=== PATIENT | male | born 1945 | race Caucasian/White ===

== ENCOUNTER 2017-12-21 14:50 | Emergency (ER) | payer OTHER ==
[2017-12-21 14:55] VITALS: TEMP 97.6; BMI 29.6
--- NOTE | 2017-12-21 14:55 | PDOC ---
Rapid Medical Evaluation Time Seen by Provider: 12/21/17 14:52 Medical Evaluation: 12/21/17 14:52 I have performed a brief in-person evaluation of this patient. The patient presents with a chief complaint of: General malaise, denies corbett, cp, sob, abd pain Pertinent physical exam findings: L/S CTAB, RRR, S1, S2, Abd soft, NT, ND I have ordered the following: cbc, cmp, cardiac profile, ekg The patient will proceed to the ED for further evaluation. Discharge Disposition - Diagnosis Malaise - Discharge Dispostion Disposition: HOME Condition at time of disposition: Stable - Referrals Referrals: Sid Valentine [Non Staff, Medical] - - Patient Instructions Printed Discharge Instructions: DI for Fatigue - Post Discharge Activity
--- NOTE | 2017-12-21 15:44 | PDOC ---
History of Present Illness - General Chief Complaint: Chest Pain Stated Complaint: CHEST PAIN,R/O BI Time Seen by Provider: 12/21/17 14:52 History Source: Patient Exam Limitations: No Limitations - History of Present Illness Initial Comments: 12/21/17 16:14 The patient is a 72 year old male with a significant PMH of CAD stent placement (10 years ago), TIA, PAD sp stent, Vtach s/p AICD, who presents to the emergency department with generalized weakness and fatigue for 1 week. The patient reports that he recently had stent placed in his legs 1 week ago. He reports that he was then placed on xarelto. Pt notes he was seeing the TROMBONE SLIDE ASSEMBLER at his cardiologists office today, had an EKG that was abnormal (electronically erad as AMI, she showed her underwear cutter and who said it was not an NC), had an echo noted for new posterior wall motion abnormality (lsat echo was 1 year ago) , and was referred to the ED for evlauation. The pt denhenna rollinsy cp, sob, londono, n/ v, diaphoresis, abd pain, back pain, headache, dizziness, dysuria, hematuria, bpr, diarrhea, melena. Pt only notes that he feels generally weak since his procedure last week. notes that when he walks around, his leg pain is resolved. Cards: Dr. Valentine social: denies drug use, etoh abuse Past History - Past Medical History Allergies/Adverse Reactions: Allergies Allergy/AdvReac Type Severity Reaction Status Date / Time No Known Allergies Allergy Verified 12/21/17 14:55 Cardiac Disorders: Yes (STENTS) COPD: No HTN: Yes - Surgical History Cardiac Surgery: Yes (PACEMAKER DEFIRILLATOR) - Suicide/Smoking/Psychosocial Hx Smoking History: Never smoked Review of Systems - Review of Systems Able to Perform ROS?: Yes Comments:: 12/21/17 16:14 CONSTITUTIONAL:(+)generalized weakness No reported: Fever, Chills, Diaphoresis, Malaise, Loss of Appetite HEENT: No reported: Rhinorrhea, Nasal Congestion, Throat Pain, Throat Swelling, Difficulty Swallowing, Mouth Swelling, Ear Pain, Eye Pain, Visual Changes CARDIOVASCULAR: No reported: Chest Pain, Syncope, Palpitations, Irregular Heart Rate, Lightheadedness, Peripheral Edema RESPIRATORY: No reported: Cough, Shortness of Breath, SOB with Exertion, Orthopnea, Wheezing , Stridor, Hemoptysis GASTROINTESTINAL: No reported: Abdominal pain, Abdominal Distension, Nausea, Vomiting, Diarrhea, Constipation, Melena, Hematochezia GENITOURINARY: No reported: Dysuria, Frequency, Urgency, Hesitancy, Flank Pain, Genital Pain MUSCULOSKELETAL: No reported: Myalgia, Arthralgia, Joint Swelling, Back pain, Neck Pain SKIN: No reported: Rash, Itching, Pallor HEMEATOLOGIC/IMMUNOLOGIC: No reported: Easy Bleeding, Easy Bruising, Lymphadenopathy, Frequent infections ENDOCRINE: No reported: Unexplained Weight Gain, Unexplained Weight Loss, Heat Intolerance , Cold Intolerance NEUROLOGIC: No reported: Headache, Focal Weakness, Paresthesias, Vertigo, Lightheadedness, Unsteady Gait, Seizure, Mental Status Changes, Incontinence PSYCHIATRIC: No reported: Anxiety, Depression *Physical Exam - Vital Signs Last Vital Signs Temp Pulse Resp BP Pulse Ox 97.6 F 62 18 151/78 97 12/21/17 14:51 12/21/17 14:51 12/21/17 14:51 12/21/17 14:51 12/21/17 14:51 - Physical Exam Comments: 12/21/17 16:14 GENERAL: The patient is awake, alert, and fully oriented, Nontoxic - in no acute distress. HEAD: Normocephalic, atraumatic. EYES: extraocular movements intact, sclera anicteric, conjunctiva clear. ENT: Normal voice, Moist mucous membranes. NECK: Normal range of motion, supple LUNGS: Breath sounds equal, clear to auscultation bilaterally. No wheezes, no rhonchi, no rales. HEART: Regular rate and rhythm, normal S1 and S2 without murmur, rub or gallop. ABDOMEN: Soft, nontender, normoactive bowel sounds. No guarding, no rebound. . No CVA tenderness GROIN: ecchymosis to the base of the penis and r inguinal fold, no pulsatile mass, tenderness, erythema, induraiton. EXTREMITIES: Normal range of motion, trace edema. NEUROLOGICAL: No facial assymetry, Normal speech, moving all 4 extremities spontaneously and symmetrically PSYCH: Normal mood, normal affect. SKIN: Warm, Dry, normal turgor, Heart Score/ECG Review - ECG Impressions Comment:: 12/21/17 16:16 Twelve-lead EKG was performed and reviewed by me. There is normal sinus rhythm with a normal rate. Rate of 63 The axis is normal. First degree AV block T wave flattening noted in the lateral leads Q waves in the inferior leads ED Treatment Course - LABORATORY CBC & Chemistry Diagram: 12/21/17 16:00 12/21/17 16:00 - ADDITIONAL ORDERS Additional order review: Laboratory Results 12/21/17 16:00 Sodium Cancelled Potassium Cancelled Chloride Cancelled Carbon Dioxide Cancelled Anion Gap Cancelled BUN Cancelled Creatinine Cancelled Creat Clearance w eGFR Cancelled Random Glucose Cancelled Calcium Cancelled Total Bilirubin Cancelled AST Cancelled ALT Cancelled Alkaline Phosphatase Cancelled Creatine Kinase Cancelled Troponin I Cancelled Total Protein Cancelled Albumin Cancelled 12/21/17 16:00 RBC Cancelled MCV Cancelled MCHC Cancelled RDW Cancelled MPV Cancelled Neutrophils % Cancelled Lymphocytes % Cancelled Monocytes % Cancelled Eosinophils % Cancelled Basophils % Cancelled Medical Decision Making - Medical Decision Making 12/21/17 15:41 72y M hx of CAD s/p PCI (inferolateral NC, sp stent, last 10 years ago), paroxismal afib on xerolto, cardiac arrest x 2, vtach sp AICD, PAD sp femoral stents last week present with complaint of generalized weakness x 1 week. pt was at cardiologists office, who denies any cp, sob, n/v, diaphoresis, abd pain, back pain, flank pain, 51%>46> with wall motion abnormalities Airline Mechanic: Meme 12/21/17 16:04 case dw EAN Pope from Dr. Richard office - states wanted to send a trop to r/o NC due to new wall motion abnormalities since previous echo 1 year ago. if neg, is comfortable dc the pt and outpatient fu next week underwear cutter - Dr. Sid Valentine 12/21/17 16:17 *DC/Admit/Observation/Transfer Diagnosis at time of Disposition: Malaise - Referrals Referrals: Sid Valentine [Non Staff, Medical] - - Patient Instructions - Post Discharge Activity
[2017-12-21 17:07] LABS: BASO % 1.2 % (0-2.0); EOS % 4.6 % (0-4.5); HEMATOCRIT 47.1 % (35.4-49); HEMOGLOBIN 15.9 GM/dL (11.7-16.9); LYMPH % 29.6 % (8-40); MCH 29.9 pg (25.7-33.7); MCHC 33.7 g/dl (32.0-35.9); MEAN CELL VOLUME 88.7 fl (80-96); MEAN PLT VOLUME 8.9 fl (7.5-11.1); MONO % 10.7 % (3.8-10.2); NEUT % 53.9 % (42.8-82.8); PLATELET COUNT 219 K/MM3 (134-434); RBC 5.31 M/mm3 (4.00-5.60); RDW 14.4 % (11.9-15.9); WHITE BLOOD COUNT 7.5 K/mm3 (4.0-10.0)
--- NOTE | 2017-12-21 17:39 | PDOC ---
*Physical Exam - Vital Signs Last Vital Signs Temp Pulse Resp BP Pulse Ox 97.6 F 62 18 151/78 97 12/21/17 14:51 12/21/17 14:51 12/21/17 14:51 12/21/17 14:51 12/21/17 14:51 ED Treatment Course - LABORATORY CBC & Chemistry Diagram: 12/21/17 17:00 12/21/17 17:00 - ADDITIONAL ORDERS Additional order review: Laboratory Results 12/21/17 16:00 Sodium Cancelled Potassium Cancelled Chloride Cancelled Carbon Dioxide Cancelled Anion Gap Cancelled BUN Cancelled Creatinine Cancelled Creat Clearance w eGFR Cancelled Random Glucose Cancelled Calcium Cancelled Total Bilirubin Cancelled AST Cancelled ALT Cancelled Alkaline Phosphatase Cancelled Creatine Kinase Cancelled Troponin I Cancelled Total Protein Cancelled Albumin Cancelled 12/21/17 12/21/17 17:00 16:00 RBC 5.31 Cancelled MCV 88.7 Cancelled MCHC 33.7 Cancelled RDW 14.4 Cancelled MPV 8.9 Cancelled Neutrophils % 53.9 Cancelled Lymphocytes % 29.6 Cancelled Monocytes % 10.7 H Cancelled Eosinophils % 4.6 H Cancelled Basophils % 1.2 Cancelled Medical Decision Making - Medical Decision Making 12/21/17 17:[address] Arora at 5pm shift change. Presented with weakness since placement of lower extremity stent. Case was discussed with terra cotta mold maker. Awaiting troponin and will DC if negative. *DC/Admit/Observation/Transfer Diagnosis at time of Disposition: Malaise - Discharge Dispostion Disposition: HOME Condition at time of disposition: Stable Decision to Admit order: No - Referrals Referrals: Sid Valentine [Non Staff, Medical] - - Patient Instructions - Post Discharge Activity
[2017-12-21 17:45] LABS: ALBUMIN 3.6 g/dl (3.4-5.0); ALK PHOS 88 U/L (45-117); ANION GAP 8 MMOL/L (8-16); BILIRUBIN,TOTAL 0.6 mg/dL (0.2-1); BLOOD UREA NITROGEN 15 mg/dL (7-18); CALCIUM 9.3 mg/dL (8.5-10.1); CHLORIDE 106 mmol/L (98-107); CO2 29 mmol/L (21-32); CREATININE 0.9 mg/dL (0.55-1.3); GLUCOSE,RANDOM 162 mg/dL (74-106); POTASSIUM 3.6 mmol/L (3.5-5.1); SGOT/AST 15 U/L (15-37); SGPT/ALT 18 U/L (13-61); SODIUM 143 mmol/L (136-145); TOT PROT 6.7 g/dl (6.4-8.2)
[2017-12-21 18:00] LABS: URINE APPEARANCE CLEAR; URINE BILIRUBIN NEGATIVE (<2.0 mg/dL); URINE COLOR LTYELLOW; URINE GLUCOSE (UA) NEGATIVE (NEGATIVE); URINE KETONE NEGATIVE (NEGATIVE); URINE LEUK ESTERASE NEGATIVE (NEGATIVE); URINE NITRITE NEGATIVE (NEGATIVE); URINE PROTEIN NEGATIVE (NEGATIVE); URINE UROBILINOGEN NEGATIVE mg/dL (0.2-1.0)
[2017-12-21 18:28] VITALS: BP 147/87; PULSE 56
--- NOTE | 2017-12-22 15:35 | EKG ---
Test Reason : Blood Pressure : / mmHG Vent. Rate : 063 BPM Atrial Rate : 063 BPM P-R Int : 284 ms QRS Dur : 108 ms QT Int : 414 ms P-R-T Axes : 026 081 104 degrees QTc Int : 423 ms SINUS RHYTHM WITH 1ST DEGREE A-V BLOCK INFERIOR INFARCT , AGE UNDETERMINED ANTEROSEPTAL INFARCT , AGE UNDETERMINED ABNORMAL ECG NO PREVIOUS ECGS AVAILABLE Confirmed by MD Edouard, Korey ([id number]) on 12/22/2017 3:35:49 PM Referred By: Confirmed By:Korey Nunn MD
== END 2017-12-21 18:28 | disposition home or self-care (01) ==
LOC: JER 14:50
DX: R53.81 Other malaise (principal); Z95.5 Presence of coronary angioplasty implant and graft; I48.91 Unspecified atrial fibrillation; Z79.01 Long term (current) use of anticoagulants; I46.9 Cardiac arrest, cause unspecified
CPT/HCPCS: 36415; 71046-TC-FY; 80053; 81003; 81015; 82550; 84484; 85025; 93005; 93010; 99282-25